=== PATIENT | female | born 1960 | race Caucasian/White ===

== ENCOUNTER 2019-09-26 19:36 | Emergency (ER) | payer BC ==
--- NOTE | 2019-09-26 19:41 | UC ---
Abdominal Pain Female HPI - HPI Summary HPI Summary: 59 yo female presents with LLQ pain. She tells me that 4 days ago she developed LLQ pain. Since that time her pain has waxed and waned, but today became severe. Tonight she noticed her heart rate was elevated and she had a fever of 100.7F. She took tylenol with mild relief. She is eating and drinking well. Denies SOB, chest pain, back pain, n/v/d/c, dysuria. She mentions that on her last colonoscopy she was noted to have diverticulosis, but has never had an episode of -litis. Last BM was this morning and was normal - History of Current Complaint Stated Complaint: LOWER LT ABD PAIN,FEVER Time Seen by Provider: 09/26/19 19:41 Hx Obtained From: Patient Onset/Duration: Sudden Onset Severity Initially: Moderate Severity Currently: Severe Pain Intensity: 8 Pain Scale Used: 0-10 Numeric Allergies/Adverse Reactions: Allergies Allergy/AdvReac Type Severity Reaction Status Date / Time No Known Allergies Allergy Verified 09/26/19 19:47 Home Medications: Home Medications Tamoxifen TAB* [Nolvadex 10 MG*] 1 tab DAILY 09/26/19 [History Confirmed ] PMH/Surg Hx/FS Hx/Imm Hx - Additional Past Medical History Additional PMH: BRCA - Surgical History Surgical History: Yes Surgery Procedure, Year, and Place: Double masectomy. Hysterectomy - Family History Known Family History: Positive: Other - BRCA - Social History Occupation: Employed Full-time Lives: With Family Alcohol Use: Occasionally Substance Use Type: None Smoking Status (MU): Never Smoked Tobacco Review of Systems All Other Systems Reviewed And Are Negative: No Constitutional: Positive: Fever Skin: Positive: Negative Eyes: Positive: Negative ENT: Positive: Negative Respiratory: Positive: Negative Cardiovascular: Positive: Negative Gastrointestinal: Positive: Abdominal Pain Genitourinary: Positive: Negative Neurological: Positive: Negative Psychological: Positive: Negative Physical Exam - Summary Physical Exam Summary: GENERAL: NAD. WDWN. No pain distress. SKIN: No rashes, sores, lesions, or open wounds. NECK: Supple. Nontender. No lymphadenopathy. CHEST: CTAB. No r/r/w. No accessory muscle use. Breathing comfortably and in no distress. CV: RRR. Pulses intact. Cap refill <2seconds ABDOMEN: Moderate TTP LLQ. Soft. No CVA tenderness. Bowel sounds present NEURO: Alert. PSYCH: Age appropriate behavior. Triage Information Reviewed: Yes Vital Signs: Vital Signs: Temp Pulse Resp BP Pulse Ox 100.3 F 111 20 157/97 98 09/26/19 19:48 09/26/19 19:48 09/26/19 19:48 09/26/19 19:48 09/26/19 19:48 Laboratory Tests 09/26/19 19:58 POC Urine Color Yellow POC Urine Clarity Clear POC Urine pH 7.5 POC Ur Specif [place] 1.015 POC Urine Protein Negative POC Ur Glucose (UA) Negative POC Urine Ketones Negative POC Urine Blood Trace-lysed A POC Urine Nitrite Negative POC Urine Bilirubin Negative POC Urine Urobilinogen 0.2 POC U Leukocyte Esteras Trace A Vital Signs Reviewed: Yes Abd Pain Female Course/Dx - Course Course Of Treatment: Suspect diverticulitis, but as she is febrile, tachycardic, and has never had diverticulitis in the past - recommend going to the ER for proper evaluation likely to include labwork and CT contrast scanning. Discussed with pt and with her and they will go now. - Differential Dx/Diagnosis Provider Diagnosis: LLQ pain Discharge ED - Sign-Out/Discharge Documenting (check all that apply): Patient Departure All imaging exams completed and their final reports reviewed: No Studies - Discharge Plan Condition: Stable Disposition: HOME-RECOMMEND TO ED Referrals: Moreno Stringer DO [Primary Care Provider] - Additional Instructions: Please go to the ER for further evaluation of your abdominal pain and fever - Billing Disposition and Condition Condition: STABLE Disposition: Home-Recommend to ED
[2019-09-26 19:52] VITALS: BP 157/97
== END 2019-09-26 20:14 | disposition home health service (06) ==
LOC: UCCORT 19:36
DX: R10.32 Left lower quadrant pain (principal)
CPT/HCPCS: 81003; 87086; 99202; G0463